=== PATIENT | female | born 1980 | race Caucasian/White ===

== ENCOUNTER 2016-09-22 12:26 | Emergency (ER) | payer OTHER ==
[~2016-09-22] VITALS: Ht 157.5 cm; Wt 60.8 kg
[2016-09-22 12:29] VITALS: BP 122/63
== END 2016-09-22 13:44 | disposition home or self-care (01) ==
LOC: ER 12:28
DX: M25.562 Pain in left knee (principal); J02.9 Acute pharyngitis, unspecified; R59.1 Generalized enlarged lymph nodes; M19.90 Unspecified osteoarthritis, unspecified site
CPT/HCPCS: 99283; A4606; Z7610